=== PATIENT | female | born 1980 | race Hispanic/Latino ===

== ENCOUNTER 2020-12-19 18:38 | Emergency (ER) | payer BC, SELFPAY ==
--- OUTSIDE RECORDS SUMMARY | 2020-12-19 18:41 | XMS REPORT | Continuity of Care Document ---
:1980 Author Organization [facility] t Address [address] [place] [address] Care Team Providers Name Role Phone Irasema Sauer Attending Clinician Lab, Fam Pob I Attending Clinician Unavailable Provider, Urgent Care Attending Clinician Unavailable Jus LEO, H Attending Clinician Ju RN, T Attending Clinician Unavailable Haris RN Attending Clinician Unavailable Problems This patient has no known problems. Allergies, Adverse Reactions, Alerts This patient has no known allergies or adverse reactions. Medications This patient has no known medications. Procedures This patient has no known procedures. Encounters Start End Encounter Admission Attending Care Care Encounter Source Date/Time Date/Time Type Type Clinicians Facility Department ID 2020-08-05 2020-08-05 Letter Erick, [id number] 00:00:00 00:00:00 (Out) [facility] [id number] Surgical [id number] Specialti [phone] [address] 2020-07-29 2020-07-29 Laboratory Lab, Adc [facility] [place] [id number] 09:31:53 09:51:53 Only Fam Pob I Health [id number] [place] [id number] Professio [phone] nal [address] 2020-07-29 2020-07-29 Letter Provider, [id number] 00:00:00 00:00:00 (Out) [facility] [id number] Care [place] [id number] Professio [phone] nal [facility] [address] 2020 2020 Laboratory Lab, [facility] [id number] 16:11:06 16:31:06 Only Fam Pob I Health [id number] [place] [id number] Professio [phone] nal [facility] [address] 2020-07-09 2020-07-09 Telephone MELANI Luu [id number] 00:00:00 00:00:00 Mau Houser ARIANA [phone] 019 2020-07-07 2020-07-07 Laboratory Lab, [facility] [id number] 15:31:36 15:51:36 Only Fam Pob I Health [id number] [place] [id number] Professio [phone] [place] [address] [address] 2020-04-28 2020-04-28 Letter MELANI Dodd [id number] 00:00:00 00:00:00 (Out) Ceci Vera ARIANA [id number] [facility] [id number] 019 2020-04-27 2020-04-27 Laboratory Lab, [facility] [id number] 13:33:35 13:53:35 Only Fam Pob I Health [id number] [place] [id number] Professio [phone] nal [facility] [address] 2020-03-25 2020-03-25 Telephone Yessi Carballo [id number] 00:00:00 00:00:00 ARIANA [id number] [facility] [id number] 019 2020-03-24 2020-03-24 Laboratory Lab, [facility] [id number] 11:27:15 11:47:15 Only Fam Pob I Health [id number] [place] [id number] Caitlyn [phone] [facility] [address] Results This patient has no known results.
[2020-12-20] MEDS ORDERED: LIDOCAINE 1% MPF 30 ML VIAL ONE (00:11)
[2020-12-20] MEDS ORDERED: TETANUS & DIPHTHERIA TOX,ADULT 0.5 ML VIAL ONE (00:13)
--- NOTE | 2020-12-20 00:24 | ER ---
Nurse's Notes [facility] Name: Pavithra Mcintyre Age: 40 yrs Sex: Female : 1980 Arrival Date: 12/19/2020 Time: 18:44 Bed 24 Private MD: Diagnosis: Thumb Laceration;IP Tendon Disruption Presentation: 12/19 19:14 Chief complaint: Patient states: Accidentally cut R hand thumb area on broken dish ll1 while washing dishes 20 min [employer]. Bleeding controlled with pressure dressing. PMS intact. < 3 cm laceration. Coronavirus screen: Client denies travel out of the [place] in the last 14 days. At this time, the client does not indicate any symptoms associated with coronavirus-19. Ebola Screen: Patient denies travel to an Ebola-affected area in the 21 days before illness onset. Initial Sepsis Screen: Does the patient meet any 2 criteria? No. Patient's initial sepsis screen is negative. Does the patient have a suspected source of infection? Yes: Skin breakdown/wound. Risk Assessment: Do you want to hurt yourself or someone else? Patient reports no desire to harm self or others. Onset of symptoms was December 19, 2020. 19:14 Method Of Arrival: Ambulatory ll1 19:14 Acuity: PIERO 4 ll1 Historical: - Allergies: 19:13 No Known Allergies; ll1 - PMHx: 19:13 None; ll1 - PSHx: 19:13 bilat foot SX, breast augmentation; ll1 - Immunization history:: Client reports receiving the 1st dose of the Covid vaccine, Last tetanus immunization: up to date Flu vaccine is not up to date. - Social history:: Smoking status: Patient reports the use of cigarette tobacco products, denies chronic smoking, but will smoke occasionally. Vital Signs: 19:14 BP 126 / 76; Pulse 84; Resp 16; Temp 98.0; Pulse Ox 99% ; Weight 52.16 kg; Height 5 ft. ll1 0 in. (152.40 cm); Pain 8/10; 19:14 Body Mass Index 22.46 (52.16 kg, 152.40 cm) ll1 ED Course: 18:44 Patient arrived in ED. mr 19:14 Arm band placed on. ll1 19:16 Triage completed. ll1 23:43 Parvez Amin PA is PHCP. [facility] 23:43 Fercho Mcelroy MD is Attending Physician. [facility] 12/20 00:19 Reginald Mohamud MD is Referral Physician. 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 Exp: 12/09/2021. Lot #: [id number]. } Route: IM; Site: left deltoid; Outcome: 00:24 Discharge ordered by . ming 00:32 Patient left the ED. Signatures: Roselyn Doss RN RN Parvez Amin PA PA caitlyn Marietta Minor Feliciano Howell, RN RN ll1 Corrections: (The following items were deleted from the chart) 12/19 19:14 19:13 Social history: Smoking status: Patient denies any tobacco usage or history of. ll1 ll1
--- NOTE | 2020-12-20 00:25 | EDPHYS ---
Physician Documentation [facility] Name: Pavithra Mcintyre Age: 40 yrs Sex: Female : 1980 Arrival Date: 12/19/2020 Time: 18:44 Bed 24 Private MD: ED Physician Fercho Mcelroy HPI: 12/20 00:13 This 40 yrs old Female presents to ER via Ambulatory with complaints of Thumb jmm Laceration. 00:13 The patient or guardian reports injury. Onset: The symptoms/episode began/occurred jmm acutely, just prior to arrival. Modifying factors: The symptoms are alleviated by nothing, the symptoms are aggravated by nothing. Associated signs and symptoms: Pertinent negatives: decreased sensation distally. This is a 40 year old female with no chronic medical conditions that presents to the ED with complaints of laceration to her right thumb while washing dishes. Unsure on tetanus immunization status. . Historical: - Allergies: 12/19 19:13 No Known Allergies; ll1 - PMHx: 19:13 None; ll1 - PSHx: 19:13 bilat foot SX, breast augmentation; ll1 - Immunization history:: Client reports receiving the 1st dose of the Covid vaccine, Last tetanus immunization: up to date Flu vaccine is not up to date. - Social history:: Smoking status: Patient reports the use of cigarette tobacco products, denies chronic smoking, but will smoke occasionally. ROS: 12/20 00:13 Constitutional: Negative for fever, chills, and weight loss, Cardiovascular: Negative jmm for chest pain, palpitations, and edema, Respiratory: Negative for shortness of breath, cough, wheezing, and pleuritic chest pain. MS/extremity: Positive for injury or acute deformity. All other systems are negative. Exam: 00:13 Constitutional: This is a well developed, well nourished patient who is awake, alert, jmm and in no acute distress. Head/Face: atraumatic. Eyes: EOMI, no conjunctival erythema appreciated ENT: Moist Mucus Membranes Neck: Trachea midline, Supple Chest/axilla: Normal chest wall appearance and motion. Cardiovascular: Regular rate and rhythm. No edema appreciated Respiratory: Normal respirations, no respiratory distress appreciated Abdomen/GI: Non distended, soft Back: Normal ROM 00:13 Musculoskeletal/extremity: 3 cm laceration noted to the right proximal phalanx, unable to extended IP joint. 00:13 Skin: 3 cm laceration noted to the proximal right thumb. 00:13 Neuro: Orientation: is normal, Mentation: is normal, Memory: is normal. 00:13 Psych: Behavior/mood is pleasant, cooperative. Vital Signs: 12/19 19:14 BP 126 / 76; Pulse 84; Resp 16; Temp 98.0; Pulse Ox 99% ; Weight 52.16 kg; Height 5 ft. ll1 0 in. (152.40 cm); Pain 8/10; 19:14 Body Mass Index 22.46 (52.16 kg, 152.40 cm) ll1 Laceration: 12/20 00:17 Wound Repair of 3cm ( 1.2in ) subcutaneous laceration to dorsal aspect of proximal jmm phalanx of right thumb. Distal neuro/vascular/tendon intact. Anesthesia: Local anesthetic administered with 2 mls of 1% lidocaine. Wound prep: Moderate cleansing with betadine by me. Skin closed with 6 5-0 Prolene using simple sutures and sterile technique. Patient tolerated well. MDM: 00:12 Patient medically screened. m 00:17 Data reviewed: vital signs, nurses notes. Counseling: I had a detailed discussion with m the patient and/or guardian regarding: the historical points, exam findings, and any diagnostic results supporting the discharge/admit diagnosis, the need for outpatient follow up, to return to the emergency department if symptoms worsen or persist or if there are any questions or concerns that arise at home. 00:17 ED course: PE findings concerning to tendon injury, advised to follow up with hand jmm within 1 week for reevaluation. patient is otherwise given strict return precautions. Patient understood and agrees with the plan of care. . 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 Exp: feroz 12/09/2021. Lot #: [id number]. } Route: IM; Site: left deltoid; Disposition: 04:23 Co-signature as Attending Physician, Fercho Mcelroy MD. [email or web address] Disposition: 12/20/20 00:24 Discharged to Home. Impression: Thumb Laceration, IP Tendon Disruption. - Condition is Stable. - Discharge Instructions: Laceration Care, Adult. - Prescriptions for Cephalexin 500 mg Oral Capsule - take 1 capsule by ORAL route every 6 hours for 10 days; 40 capsule. - Medication Reconciliation Form, Thank You Letter, Antibiotic Education, Prescription Opioid Use form. - Follow up: Reginald Mohamud MD; When: 1 week; Reason: Recheck today's complaints, Continuance of care, Re-evaluation by your physician. Signatures: Roselyn Doss RN RN mw Parvez Amin PA PA jmm Lewis, Lynsay, RN RN 1 Fercho Mcelroy MD MD [email or web address] Corrections: (The following items were deleted from the chart) 12/19 19:14 19:13 Social history: Smoking status: Patient denies any tobacco usage or history of. ll1 ll1 12/20 00:32 00:24 12/20/2020 00:24 Discharged to Home. Impression: Thumb Laceration; IP Tendon mw Disruption. Condition is Stable. Forms are Medication Reconciliation Form, Thank You Letter, Antibiotic Education, Prescription Opioid Use. Follow up: Reginald Mohamud; When: 1 week; Reason: Recheck today's complaints, Continuance of care, Re-evaluation by your physician. ming
[2020-12-20 00:37] VITALS: BP 126/76; TEMP 98; O2SAT 99
== END 2020-12-20 00:32 | disposition home or self-care (01) ==
LOC: ER 18:38
PROC: 0JQJ0ZZ Repair Right Hand Subcutaneous Tissue and Fascia, Open Approach (ICD-10-PCS; principal; 2020-12-20)
DX: S61.011A Laceration without foreign body of right thumb without damage to nail, initial encounter (principal); M67.843 Other specified disorders of tendon, right hand; W25.XXXA Contact with sharp glass, initial encounter; Y93.G1 Activity, food preparation and clean up; Z23 Encounter for immunization; Z98.82 Breast implant status; F17.210 Nicotine dependence, cigarettes, uncomplicated
CPT/HCPCS: 90471; 99282